=== PATIENT | female | born 1945 | race Caucasian/White ===

== ENCOUNTER 2020-12-10 18:00 | Emergency (ER) | payer MEDICARE, BC, SELFPAY ==
[~2020-12-10] VITALS: Ht 162.6 cm; Wt 59.0 kg
[2020-12-10 18:14] VITALS: BP_SYST 186
[2020-12-10] MEDS ORDERED: NACL 0.9% 1,000 ML IV ONE (18:45)
[2020-12-10] MEDS ORDERED: MORPHINE 2 MG/ML INJ. SYRINGE IVP ONE (18:45)
[2020-12-10] MEDS ORDERED: DIPHENHYDRAMINE INJ 50 MG/ML VIAL IVP ONE (19:00)
[2020-12-10 20:10] LABS: BASOPHILS % (AUTO) 0.2 % (0.0-2.0); EOSINOPHILS % (AUTO) 0.3 % (0.0-4.0); HEMOGLOBIN 11.3 g/dL (12.0-16.0); LYMPHOCYTES # (AUTO) 1.2 K/uL (1.0-5.5); LYMPHOCYTES % (AUTO) 13.4 % (20.5-51.5); MEAN CORPUSCULAR HEMOGLOBIN 33 pg (27-31); MEAN CORPUSCULAR HGB CONC 34 % (32-36); MEAN CORPUSCULAR VOLUME 96 fL (79.0-98.0); MONOCYTES # (AUTO) 0.5 K/uL (0.0-1.0); MONOCYTES % (AUTO) 6.1 % (1.7-9.3); NEUTROPHILS # (AUTO) 6.9 K/uL (1.8-7.7); PLATELET COUNT (AUTO) 215 K/uL (130-430); RED BLOOD CELL COUNT(AUTO) 3.45 MIL/uL (4.2-6.2); RED CELL DISTRIBUTION WIDTH 14.1 % (9.0-15.0); WHITE BLOOD COUNT (AUTO) 8.6 K/uL (4.8-10.8)
[2020-12-10] MEDS ORDERED: HYDR100T25 PO (20:21)
[2020-12-10] MEDS ORDERED: SEVE800T8 PO (20:21)
[2020-12-10] MEDS ORDERED: GABA-529 PO (20:21)
[2020-12-10] MEDS ORDERED: ACET-2634 PO (20:21)
[2020-12-10] MEDS ORDERED: SIMV40TA2 PO (20:21)
[2020-12-10] MEDS ORDERED: ESOM40CA PO (20:21)
[2020-12-10] MEDS ORDERED: CAT.1 PO (20:21)
[2020-12-10] MEDS ORDERED: NIFE90TA48 PO (20:21)
[2020-12-10] MEDS ORDERED: PEPTO PO (20:21)
[2020-12-10] MEDS ORDERED: SITA100T11 PO (20:21)
[2020-12-10] MEDS ORDERED: XALEYE OP (20:21)
[2020-12-10] MEDS ORDERED: MORPHINE 2 MG/ML INJ. SYRINGE ONE (20:51)
[2020-12-10 20:53] LABS: ALANINE AMINOTRANSFERASE 34 U/L (12-78); ALBUMIN 3.6 g/dL (3.4-4.8); ASPARTATE AMINOTRANSFERASE 21 U/L (10-37); CHLORIDE 90 mmol/L (98-107); CREATININE 6.79 mg/dL (0.55-1.30); GLUCOSE 98 mg/dL (70-99); LIPASE 103 U/L (73-393); POTASSIUM 4.7 mmol/L (3.5-5.1); SODIUM SERUM 131 mmol/L (136-145); TOTAL BILIRUBIN 0.5 mg/dL (0.0-1.0); UREA NITROGEN, BLOOD 37 mg/dL (8-21)
[2020-12-10 21:01] LABS: PROTHROMBIN TIME 10.7 SECS (9.5-12.5)
[2020-12-10 21:23] LABS: ANION GAP 16 (5-15)
[2020-12-10] MEDS ORDERED: ACETAMINOPHEN 325 MG TABLET ONE (22:29)
[2020-12-10] MEDS ORDERED: ACETAMINOPHEN 325 MG TABLET PO ONE (22:30)
[2020-12-10 23:25] VITALS: BP_SYST 186
== END 2020-12-10 23:25 | disposition home or self-care (01) ==
LOC: SED 18:00
DX: I12.0 Hypertensive chronic kidney disease with stage 5 chronic kidney disease or end stage renal disease (principal); E11.22 Type 2 diabetes mellitus with diabetic chronic kidney disease; N18.6 End stage renal disease; N39.0 Urinary tract infection, site not specified; R10.32 Left lower quadrant pain; Z79.899 Other long term (current) drug therapy; Z20.822 Contact with and (suspected) exposure to COVID-19
CPT/HCPCS: 36415; 71045; 74176; 76376; 80053; 83605; 83690; 85025; 85610; 85730; 87040; 87426; 93005; 96361; 96374; 96375; 99285; J1200; J2270; J7030

== ENCOUNTER 2022-12-13 20:46 | Inpatient (IN) | payer BC, MEDICARE ==
[~2022-12-13] VITALS: Ht 147.3 cm; Wt 66.4 kg
[~2022-12-13 20:46] MED LIST: ACET-2634 PO; CAT.1 PO; ESOM40CA PO; GABA-529 PO; HYDR100T25 PO; NIFE90TA48 PO; PEPTO PO; SEVE800T8 PO; SIMV40TA2 PO; SITA100T11 PO; XALEYE OP
[2022-12-13 21:49] LABS: HEMATOCRIT 26.7 % (36-48); HEMOGLOBIN 8.9 g/dL (12.0-16.0); MEAN CORPUSCULAR HEMOGLOBIN 33 pg (27-31); MEAN CORPUSCULAR HGB CONC 33 % (32-36); MEAN CORPUSCULAR VOLUME 99 fL (79.0-98.0); PLATELET COUNT (AUTO) 154 K/uL (130-430); RED CELL DISTRIBUTION WIDTH 14.6 % (9.0-15.0); WHITE BLOOD COUNT (AUTO) 3.6 K/uL (4.8-10.8)
[2022-12-13 21:54] LABS: ANION GAP 5 (5-15); CALCIUM 9.3 mg/dL (8.4-11.0); CHLORIDE 95 mmol/L (98-107); CREATININE 3.47 mg/dL (0.55-1.30); GLUCOSE 125 mg/dL (70-99); UREA NITROGEN, BLOOD 19 mg/dL (8-21)
[2022-12-13 22:01] LABS: ALANINE AMINOTRANSFERASE 22 U/L (12-78); ALBUMIN 3.7 g/dL (3.4-4.8); AMYLASE 47 U/L (0-100); ASPARTATE AMINOTRANSFERASE 15 U/L (10-37); C-REACTIVE PROTEIN QUANT 1.3 mg/dL (0-0.5); LACTATE DEHYDROGENASE 186 U/L (81-234); LIPASE 114 U/L (73-393); TOTAL BILIRUBIN 0.4 mg/dL (0.0-1.0)
[2022-12-13 22:30] LABS: ACETONE, SERUM NEGATIVE (NEGATIVE)
[2022-12-13 22:46] LABS: BAND % (MANUAL) 1 % (0-6); BASOPHILS % (MANUAL) 0 % (0-2); EOSINOPHILS % (MANUAL) 0 % (0-7); LYMPHOCYTES % (MANUAL) 18 % (20-46); MONOCYTES % (MANUAL) 8 % (0-11)
[2022-12-14 00:12] VITALS: BP_SYST 137
--- NOTE | 2022-12-14 00:20 | NUR ---
Report received from ARIANNE Leach for continuity of care. Patient TOMI Garcia rig [id number] for c/o abdominal pain for past 4 days. Patient's last BM was yesterday. Patient last oral intake was yesterday. Patient has history of HTN, DM, CKD and has AV Shunt on left arm. Patient has dialysis on , , and Thursday. Dr. Minaya made aware. New orders noted and carried out.
--- NOTE | 2022-12-14 00:46 | NUR ---
Patient said she does not "have the urge to urinate."
--- NOTE | 2022-12-14 01:02 | NUR ---
Dr. Haq at bedside to talk to patient.
[2022-12-14] MEDS ORDERED: KETOROLAC TROMETHAMINE 15 MG VIAL IVP ONE (01:15)
--- NOTE | 2022-12-14 01:51 | NUR ---
Radiology notified US tech of order.
--- NOTE | 2022-12-14 04:23 | NUR ---
Spoke with Flakito Bullard, regarding patient hydascan ordered. Patient on list to be seen in the morning.
--- NOTE | 2022-12-14 04:30 | NUR ---
Patient found jumping out of bed sitting in chair. Patient took off cardiac leads and blood pressure cuff. Patient still had IV intact. Dr. Minaya notified and he came to talk to patient. Patient encouraged to go back to bed and was re-oriented and compliant. Vital signs stable.
--- NOTE | 2022-12-14 06:17 | NUR ---
Roxyt placed on 2L NC for O2 saturation going down to 84%.
--- NOTE | 2022-12-14 06:17 | NUR ---
patient sleeping at the moment.
--- NOTE | 2022-12-14 07:32 | NUR ---
Report given to day shift RN for continuitty of care. Patient in stable condition. Vital signs stable. Patient wanted to sit in chair.
--- NOTE | 2022-12-14 07:41 | NUR ---
Admit bed requested Patient will be admitted to care of . Admitted to [facility] unit. Diagnosis ABD PAIN Inpatient (Yes or No) YES Observation (Yes or No) NO Orientation concerns or request close to nursing station (Yes or No) NO Covid Status PENDING On vent or bipap NO Isolation requirements NO Needs a sitter NO From Home (Yes or if No enter name of facility)WISE DETENTION Requires Dialysis (Yes or No) YES Med Rec Completed (Yes of No) YES
[2022-12-14] MEDS ORDERED: PANTOPRAZOLE SODIUM 40 MG/VIAL (PROTONIX) IVP ONE (10:15)
[2022-12-14] MEDS: PANTOPRAZOLE SODIUM 40 MG/VIAL (PROTONIX) IVP SCH (14:21)
[2022-12-14] MEDS ORDERED: PANTOPRAZOLE SODIUM 40 MG/VIAL (PROTONIX) ONE (14:28)
[2022-12-14 18:25] VITALS: BP_SYST 154
--- NOTE | 2022-12-14 18:49 | NUR ---
REPORT GIVEN TO PAMELA HOLBROOK RN FOR CONTINUITY OF CARE. ALL QUESTIONS AND CONCERNS ANSWERED. ALL CARE ENDORSED.
--- NOTE | 2022-12-14 19:00 | NUR ---
Admit to unit Patient arrived to unit, via wheelchair. Patient is AOx3. Forgetful. Speaks Welsh only. Patient is ambulatory with steady gait. No ss of respiratory distress noted. Denies severe pain and SOB, at this time. Vital signs obtained, as documented. Patient has RFA 22 G IV. YUKI AV shunt, Patient states last dialysis was Thursday, unable to remember location or nephrologists name. Dr. Mcgarry came to see patient at bedside. inventory done. Patient has been oriented to room and call light use. Bed is locked and at lowest position. Call light within reach. Endorsed continue of care to YUDELKA Martin.
[2022-12-14 19:50] VITALS: BP_SYST 139
--- NOTE | 2022-12-14 20:00 | NUR ---
gi/discomfort Complaining of moderate abdominal discomfort , denies any chest pain , due pain medication given slowly able to sleep after medication , safety /fall precaution initiated, will monitor, spoke to ariel Willingham regarding medical history, patient cannot remember the detail of medical history .
[2022-12-14] MEDS ORDERED: ACETAMINOPHEN 500 MG TABLET PO PRN (20:15)
[2022-12-14] MEDS ORDERED: cloNIDine HCL 0.1 MG TABLET PO PRN (20:15)
[2022-12-14] MEDS: MORPHINE 2 MG/ML INJ. SYRINGE IVP PRN (20:16)
[2022-12-14] MEDS: LATANOPROST 2.5 ML DROPS (XALATAN) OP SCH (21:00)
[2022-12-14] MEDS: hydrALAZINE HCL 25 MG TABLET PO SCH (21:00)
[2022-12-14] MEDS: GABAPENTIN 100 MG CAPSULE PO SCH (21:00)
[2022-12-14] MEDS: SIMVASTATIN 40 MG TABLET PO SCH (21:00)
[2022-12-14 23:57] VITALS: BP_SYST 148
--- NOTE | 2022-12-15 00:02 | NUR ---
PATIENT RESTING: Patient resting quietly. No acute distress noted. Vital signs within normal range.
--- NOTE | 2022-12-15 01:45 | NUR ---
Patient awake with with mild abdominal discomfort and anxiety , due meds given safety and fall precaution initiated.
[2022-12-15] MEDS: LORazepam 1 MG TABLET PO PRN (01:50)
[2022-12-15 06:12] LABS: BASOPHILS % (AUTO) 0.4 % (0.0-2.0); EOSINOPHILS % (AUTO) 0.2 % (0.0-4.0); HEMATOCRIT 26.2 % (36-48); HEMOGLOBIN 8.8 g/dL (12.0-16.0); LYMPHOCYTES # (AUTO) 0.6 K/uL (1.0-5.5); LYMPHOCYTES % (AUTO) 16.9 % (20.5-51.5); MEAN CORPUSCULAR HEMOGLOBIN 33 pg (27-31); MEAN CORPUSCULAR HGB CONC 33 % (32-36); MEAN CORPUSCULAR VOLUME 100 fL (79.0-98.0); MONOCYTES # (AUTO) 0.5 K/uL (0.0-1.0); MONOCYTES % (AUTO) 12.9 % (1.7-9.3); NEUTROPHILS # (AUTO) 2.6 K/uL (1.8-7.7); NEUTROPHILS % (AUTO) 69.6 % (40.0-70.0); PLATELET COUNT (AUTO) 155 K/uL (130-430); RED BLOOD CELL COUNT(AUTO) 2.64 MIL/uL (4.2-6.2); RED CELL DISTRIBUTION WIDTH 14.5 % (9.0-15.0); WHITE BLOOD COUNT (AUTO) 3.7 K/uL (4.8-10.8)
[2022-12-15 06:48] LABS: ALANINE AMINOTRANSFERASE 19 U/L (12-78); ALBUMIN 3.5 g/dL (3.4-4.8); ANION GAP 8 (5-15); ASPARTATE AMINOTRANSFERASE 11 U/L (10-37); CALCIUM 9.3 mg/dL (8.4-11.0); CHLORIDE 97 mmol/L (98-107); CREATININE 5.75 mg/dL (0.55-1.30); GLUCOSE 118 mg/dL (70-99); TOTAL BILIRUBIN 0.6 mg/dL (0.0-1.0); UREA NITROGEN, BLOOD 40 mg/dL (8-21)
--- NOTE | 2022-12-15 06:53 | NUR ---
Patient is calm ,alert sitting in the chair ambulate with steady gait no sign of acute discomfort.
[2022-12-15 08:00] VITALS: BP_SYST 131
[2022-12-15] MEDS: SEVELAMER CARBONATE 800 MG TABLET PO SCH ×3 (08:00→18:15)
--- NOTE | 2022-12-15 08:00 | NUR ---
OPENING NOTES PATIENT IS AOX3. CONFUSED/ FORGETFUL. NO SS OF DISTRESS NOTED. BREATHING IS EVEN AND NONLABORED, ON ROOM AIR. PATIENT DENIES SEVERE PAIN. NO SOB NOTED. VITAL SIGNS OBTAINED, DOCUMENTED. IV PATENT. BED IS LOCKED, ALARM ON, AND AT LOWEST POSITION. CALL LIGHT WITHIN REACH.
[2022-12-15] MEDS: NIFEDIPINE 90 MG TABLET.SA (PROCARDIA XL 90 MG) PO SCH (09:00)
[2022-12-15] MEDS: hydrALAZINE HCL 25 MG TABLET PO SCH ×3 (09:00→21:12)
[2022-12-15] MEDS ORDERED: NON-FORMULARY MEDICATION (Esomeprazole Mag Trihydrate (Nexium) 40 MG) PO SCH (09:00)
[2022-12-15] MEDS: GABAPENTIN 100 MG CAPSULE PO SCH ×3 (09:00→21:12)
--- NOTE | 2022-12-15 09:52 | NUR ---
notes Patient to have Lexiscan today around 1400. Patient is NPO. Medications not administered. No narcotics to be administered. Patient is calm. No distress noted. Informed patient of Katie scan and reason for being NPO. Patient verbalized understanding. NPO sign on table. Safety precautions in place and call light within reach.
[2022-12-15] MEDS: PANTOPRAZOLE SODIUM 40 MG/VIAL (PROTONIX) IVP SCH (10:08)
[2022-12-15 11:46] VITALS: BP_SYST 131
--- NOTE | 2022-12-15 12:00 | NUR ---
NOTES PATIENT REMAINS NPO. STABLE. NO DISTRESS NOTED. SAFETY PRECAUTIONS IN PLACE AND CALL LIGHT WITHIN REACH.
[2022-12-15] MEDS ORDERED: INSULIN REGULAR, HUMAN 10 UNITS/0.1 ML, 3 ML VIAL SUBCUT PRN (13:15)
--- NOTE | 2022-12-15 14:00 | NUR ---
NOTES PATIENT LEFT UNIT FOR HYDRA SCAN.
--- NOTE | 2022-12-15 16:00 | NUR ---
NOTES PATIENT RETURNED FROM SCAN. NO SS OF DISTRESS NOTED. PATIENT DENIES PAIN. FACIAL GRIMACE NOTED. PATIENT IS SITTING IN CHAIR BY BEDSIDE. SAFETY PRECAUTIONS IN PLACE AND CALL LIGHT WITHIN REACH.
[2022-12-15 16:41] VITALS: BP_SYST 144
--- NOTE | 2022-12-15 18:21 | NUR ---
notes Patient currently having dialysis. Blood glucose was 164 mg/dl. did not administer insulin as patient has not eaten since oyster tonger and will not eat until after dialysis is over. family at bedside. safety precautions in place. call light within reach.
--- NOTE | 2022-12-15 19:29 | NUR ---
CLOSING NOTES PATIENT IS RESTING, HAVING DIALYSIS. NO SS OF DISTRESS NOTED. BREATHING IS EVEN AND NONLABORED, ON ROOM AIR. IV PATENT. PATIENT DENIES SEVERE PAIN. PATIENT STABLE. ALL NEEDS MET. SAFETY PRECAUTIONS IN PLACE AND CALL LIGHT WITHIN REACH. ENDORSED CARE TO YUDELKA EVERETT.
[2022-12-15 20:00] VITALS: BP_SYST 150
--- NOTE | 2022-12-15 20:58 | NUR ---
PT WAS RECEIVING HD AND STATED SHE DID NOT FEEL WELL. HD NURSE STOPPED THE PROCESS. PT STATES SHE FEELS TIDIED. VSS. AMBULATED PT TO BATHROOM. SAT HER IN CHAIR. SHE STATES SHE FELT SO UNCOMFORTABLE IN THE BED. CALL LIGHT WITHIN REACH. WILL MONITOR PT CLOSELY.
[2022-12-15] MEDS: SIMVASTATIN 40 MG TABLET PO SCH (21:17)
[2022-12-15] MEDS: LATANOPROST 2.5 ML DROPS (XALATAN) OP SCH (21:18)
[2022-12-16 02:29] VITALS: BP_SYST 147
[2022-12-16 08:00] VITALS: BP_SYST 123
--- NOTE | 2022-12-16 08:00 | NUR ---
Opening Notes Patient is AOx3. Vital signs obtained, as documented. No ss of distress noted. Facial grimace noted. Patient states has abdominal pain. Breathing is even and nonlabored, on room air. Iv patent. Flushed well. safety precautions in place and call light within reach.
[2022-12-16] MEDS: MORPHINE 2 MG/ML INJ. SYRINGE IVP PRN (08:36)
[2022-12-16] MEDS: PANTOPRAZOLE SODIUM 40 MG/VIAL (PROTONIX) IVP SCH (08:43)
[2022-12-16] MEDS: hydrALAZINE HCL 25 MG TABLET PO SCH ×3 (08:59→21:00)
[2022-12-16] MEDS: SEVELAMER CARBONATE 800 MG TABLET PO SCH ×3 (08:59→17:19)
[2022-12-16] MEDS: NIFEDIPINE 90 MG TABLET.SA (PROCARDIA XL 90 MG) PO SCH (09:00)
[2022-12-16] MEDS: GABAPENTIN 100 MG CAPSULE PO SCH ×3 (09:00→21:25)
--- NOTE | 2022-12-16 09:07 | NUR ---
notes patient is sitting in chair at bedside, resting. Patient did not want to lie down in bed. Patient stated earlier had abdominal pain. Pain medication given by RN via IVP. Patient's shows no ss of distress. No SOB noted. Breathing is even and nonlabored, on room air. Educated patient on fall prevention and safety precautions. call light within reach reach.
[2022-12-16 11:24] VITALS: BP_SYST 122
--- NOTE | 2022-12-16 12:30 | NUR ---
Notes Patient is resting, eyes closed. No ss of distress noted. No facial grimace noted. Patient stable. Safety precautions in place and call light within reach.
--- NOTE | 2022-12-16 15:06 | NUR ---
CONSULTATION PAGED/CALLED Reason for Consultation: abdominal pain Person Who was Notified: paged Dr. Connelly for consult, spoke to Sulema. Paged Dr. Galan Consulting Physician: [employer] Specialty: GI Ordering Physician: Luther
--- NOTE | 2022-12-16 16:00 | NUR ---
Notes ambulated patient with walker. Tolerated well. No SOB noted. Denies severe pain.
[2022-12-16 17:29] VITALS: BP_SYST 91
--- NOTE | 2022-12-16 19:01 | NUR ---
Closing notes Patient is resting, in bed, eating dinner. No ss of distress noted. patient denies pain. No SOB noted. Breathing is even and nonlabored, on room air. IV patent. Patient is stable. All needs met. Safety precautions in place and call light within reach.
--- NOTE | 2022-12-16 19:15 | NUR ---
OPENING NOTE PT SITTING IN CHAIR WITH FAMILY BEDSIDE. NO APPARENT SIGNS OF DISTRESS NOTED. BED IN LOWEST POSITION WITH SAFETY PRECAUTIONS IN PLACE. CALL LIGHT WITHIN REACH. ALL NEEDS MET AT THIS TIME.
[2022-12-16 20:00] VITALS: BP_SYST 106
[2022-12-16] MEDS: LATANOPROST 2.5 ML DROPS (XALATAN) OP SCH (21:24)
[2022-12-16] MEDS: SIMVASTATIN 40 MG TABLET PO SCH (21:25)
[2022-12-17 00:04] VITALS: BP_SYST 117
[2022-12-17 05:31] VITALS: BP_SYST 122
[2022-12-17] MEDS: LORazepam 1 MG TABLET PO PRN (05:37)
[2022-12-17 05:38] LABS: BASOPHILS # (AUTO) 0.1 K/uL (0.0-0.2); BASOPHILS % (AUTO) 1.6 % (0.0-2.0); EOSINOPHILS % (AUTO) 0.4 % (0.0-4.0); HEMATOCRIT 25.2 % (36-48); HEMOGLOBIN 8.5 g/dL (12.0-16.0); LYMPHOCYTES # (AUTO) 0.8 K/uL (1.0-5.5); LYMPHOCYTES % (AUTO) 21.4 % (20.5-51.5); MEAN CORPUSCULAR HEMOGLOBIN 33 pg (27-31); MEAN CORPUSCULAR HGB CONC 34 % (32-36); MEAN CORPUSCULAR VOLUME 99 fL (79.0-98.0); MONOCYTES # (AUTO) 0.5 K/uL (0.0-1.0); MONOCYTES % (AUTO) 12.5 % (1.7-9.3); NEUTROPHILS # (AUTO) 2.3 K/uL (1.8-7.7); NEUTROPHILS % (AUTO) 64.1 % (40.0-70.0); PLATELET COUNT (AUTO) 183 K/uL (130-430); RED BLOOD CELL COUNT(AUTO) 2.55 MIL/uL (4.2-6.2); RED CELL DISTRIBUTION WIDTH 14.5 % (9.0-15.0); WHITE BLOOD COUNT (AUTO) 3.6 K/uL (4.8-10.8)
[2022-12-17 05:55] LABS: ANION GAP 11 (5-15); CALCIUM 9.2 mg/dL (8.4-11.0); CHLORIDE 97 mmol/L (98-107); CREATININE 6.43 mg/dL (0.55-1.30); GLUCOSE 94 mg/dL (70-99); UREA NITROGEN, BLOOD 40 mg/dL (8-21)
[2022-12-17 08:00] VITALS: BP_SYST 122
[2022-12-17] MEDS: GABAPENTIN 100 MG CAPSULE PO SCH ×3 (11:09→20:00)
[2022-12-17] MEDS: SEVELAMER CARBONATE 800 MG TABLET PO SCH ×3 (11:09→17:13)
[2022-12-17] MEDS: PANTOPRAZOLE SODIUM 40 MG/VIAL (PROTONIX) IVP SCH (11:10)
--- NOTE | 2022-12-17 12:30 | NUR ---
ASSESSMENT COMPLETED PLAN OF CARE REVIEWED PT BP MEDICATION HELD FOR HD TODAY WILL CONTINUE TO MONITOR AND ASSESS
[2022-12-17 13:57] VITALS: BP_SYST 145
[2022-12-17] MEDS: hydrALAZINE HCL 25 MG TABLET PO SCH ×2 (15:00→21:08)
--- NOTE | 2022-12-17 15:08 | NUR ---
PT RECEIVING HD AT THIS TIME PER HD RN HOLD BP MEDS DUE NOTED WILL CONITNUE TO MONITOR AND ASSESS
[2022-12-17] MEDS: NIFEDIPINE 90 MG TABLET.SA (PROCARDIA XL 90 MG) PO SCH (15:19)
[2022-12-17 17:04] VITALS: BP_SYST 138
--- NOTE | 2022-12-17 17:12 | NUR ---
DR EILEEN MILLER MD. UPDATED HIM OF PATIENT CONDITION. STATED THAT PATIENT WILL BE DISCHARGE BACK TO [facility]
[2022-12-17] MEDS: MORPHINE 2 MG/ML INJ. SYRINGE IVP PRN (20:01)
[2022-12-17] MEDS: LATANOPROST 2.5 ML DROPS (XALATAN) OP SCH (20:01)
[2022-12-17] MEDS: SIMVASTATIN 40 MG TABLET PO SCH (20:05)
[2022-12-18 00:19] VITALS: BP_SYST 120
[2022-12-18] MEDS: SEVELAMER CARBONATE 800 MG TABLET PO SCH (08:29)
[2022-12-18] MEDS: GABAPENTIN 100 MG CAPSULE PO SCH (08:29)
[2022-12-18] MEDS: PANTOPRAZOLE SODIUM 40 MG/VIAL (PROTONIX) IVP SCH (08:29)
[2022-12-18] MEDS: MORPHINE 2 MG/ML INJ. SYRINGE IVP PRN (08:30)
[2022-12-18] MEDS: NIFEDIPINE 90 MG TABLET.SA (PROCARDIA XL 90 MG) PO SCH (08:30)
[2022-12-18] MEDS: hydrALAZINE HCL 25 MG TABLET PO SCH (08:36)
--- NOTE | 2022-12-18 08:40 | NUR ---
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
[2022-12-18 10:20] VITALS: BP_SYST 141
[2022-12-18 10:43] VITALS: BP_SYST 141
--- NOTE | 2022-12-18 11:11 | NUR ---
DISCHARGE INSTRUCTIONS COMPLETE PT AWAITING VAN SALINE LOCK DISCONTINUED SPOKE WITH TITO SIMMONS AND GAVE REPORT PT STABLE AT TIME OF DISCHARGE NO ACUTE DISTRESS NOTED
[2022-12-18 11:28] VITALS: BP_SYST 105
[2022-12-19] MEDS ORDERED: EPOETIN ALFA-EPBX 4,000 UNITS/ML VIAL SUBCUT SCH (17:00)
== END 2022-12-18 11:35 | disposition home or self-care (01) | DRG 251 ==
LOC: SED 20:46 → SMU 12-14 07:33
PROVIDERS: ADMIT Internal Medicine; ATTEND Internal Medicine
PROC: 5A1D70Z Performance of Urinary Filtration, Intermittent, Less than 6 Hours Per Day (ICD-10-PCS; principal; 2022-12-15)
PROC: 5A1D70Z Performance of Urinary Filtration, Intermittent, Less than 6 Hours Per Day (ICD-10-PCS; 2022-12-17)
DX: R10.9 Unspecified abdominal pain (principal); G93.41 Metabolic encephalopathy; I13.2 Hypertensive heart and chronic kidney disease with heart failure and with stage 5 chronic kidney disease, or end stage renal disease; N18.6 End stage renal disease; E11.22 Type 2 diabetes mellitus with diabetic chronic kidney disease; E11.40 Type 2 diabetes mellitus with diabetic neuropathy, unspecified; D64.9 Anemia, unspecified; E78.5 Hyperlipidemia, unspecified; K29.70 Gastritis, unspecified, without bleeding; I50.9 Heart failure, unspecified; Z20.822 Contact with and (suspected) exposure to COVID-19; Z99.2 Dependence on renal dialysis; Z79.1 Long term (current) use of non-steroidal anti-inflammatories (NSAID); Z79.899 Other long term (current) drug therapy
CPT/HCPCS: 36415; 76376; 76705; 78226; 80048; 80053; 82009; 82150; 83605; 83615; 83690; 84484; 85007; 85025; 85027; 86140; 87081; 90935; 99285; A9537; C9113; J1885; J2270